=== PATIENT | male | born 1980 | race Caucasian/White ===

== ENCOUNTER 2020-01-29 14:15 | Emergency (ER) | payer SELFPAY ==
--- NOTE | ~2020-01-29 | XR_ITS ---
XR lumbar spine 2-3V 01/29/2020 15:10 Indication: Low back pain Procedure: 3 views lumbar spine Comparison: 01/26/2013 Findings: Vertebral body and disc heights are preserved. No fracture or traumatic malalignment. Pedic les intact. Sacral foramen are symmetric. There are mild facet degenerative changes at L5-S1. Impression: 1: Mild lumbar spondylosis. Reviewed, dictated and finalized at location B. Impression: 1: Mild lumbar spondylosis.
[2020-01-29 14:32] VITALS: BP 142/79; PULSE 102; RESP 18; TEMP 36.6; O2SAT 98
--- NOTE | 2020-01-29 14:44 | ED.BACK ---
HPI - Back Pain/Injury General Chief Complaint: Back Pain/Injury Stated Complaint: Back pain Time Seen by Provider: 01/29/20 14:45 Source: patient Mode of arrival: ambulatory Limitations: no limitations History of Present Illness HPI Narrative: Previously well 39-year-old man comes in today complaining of low back pain which has been present for last week. Patient states that he was lifting rebar work when he felt a pop in his lower back and he was unable to a left after that without significant pain. Patient states the pain now radiates to his right buttock and his right lateral thigh. He denies any weakness, numbness, tingling, perineal numbness or incontinence. He said he has had back aches from work before but he states this never been this bad. MD elicited complaint: back pain and back injury Pertinent past history: prior back pain Onset (ago): week(s) (1) Timing: constant Severity: severe Similar Symptoms Previously: Yes Quality: sharp and aching Location: lumbar spine Radiation: buttocks (R) and right upper leg Exacerbating factors: movement and lifting Relieving factors: other (rest) Context: while lifting Treatments prior to arrival: NSAIDS Work related injury: Yes Related Data Allergies Allergy/AdvReac Type Severity Reaction Status Date / Time No Known Allergies Allergy Verified 01/29/20 14:39 Review of Systems Constitutional: Constitutional: Denies chills, Denies fever(s) and Denies weakness Eyes: Eyes: Denies change in vision and Denies photophobia ENT: Denies dysphagia, Denies nasal congestion and Denies sore throat Cardiovascular: Cardiovascular: Denies chest pain and Denies radiating jaw, neck or arm pain Respiratory: Respiratory: Denies cough, Denies dyspnea and Denies wheezing Gastrointestinal: Gastrointestinal: Denies abdominal pain, Denies nausea and Denies vomiting Genitourinary: Genitourinary: Denies dysuria and Denies urinary incontinence Musculoskeletal: Musculoskeletal: Reports as per HPI, Reports back pain, Denies arthralgias and Denies joint swelling Integumentary/Breasts: Skin/Breast: Denies pruritus, Denies erythema and Denies rash Neurologic: Denies vertigo, Denies dizziness and Denies syncope Hematologic/Lymphatic: Hematologic/Lymphatic: Denies easy bleeding and Denies easy bruising Allergic/Immunologic: Allergic/Immunologic: Denies lip swelling and Denies wheezing PMFSH Surgical History Surgical History History of ankle surgery right Social History Social History Smoking status: Current some day smoker Alcohol intake: never Substance use: never Living arrangements: with family Exam Const: Other: Moderate acute distress HENMT: Mouth: Yes moist mucous membranes Throat: posterior oropharynx normal Eyes: Conjunctivae: conjunctivae normal Pupils: Equal, round and reactive pupils present EOM: EOMs intact bilaterally Resp: Effort & Inspection: normal respiratory effort, not labored and no retractions Auscultation: clear to auscultation bilaterally, no crackles, no rales and no rhonchi Cardio: Rate: regular rate Rhythm: regular rhythm Heart sounds: no murmurs GI: Inspection: non-distended Auscultation: normal bowel sounds Skin: General skin exam: normal color, no jaundice and no pallor Rashes: no rashes Neuro: General: patient oriented x3, moves all extremities, no focal motor deficits and CN's II-XI intact bilaterally Speech: normal speech Other: DTR 2+ and symmetric at patellar and calcaneal tendons Extrem: General: normal to inspection and no clubbing, cyanosis or edema Psych: Appearance: grossly normal and well kempt Mental Status: mental status grossly normal Affect: normal affect Attitude: cooperative Thought content: Yes Normal thought content present Course Vital Signs Vital signs: Vital Signs Temperature 36.6 C 01/29/20
[2020-01-29] MEDS: KETOROLAC (*BKC) 60 MG/2 ML VIAL IM (15:11)
== END 2020-01-29 15:30 | disposition home or self-care (01) ==
PROVIDERS: Emergency Provider Emergency Medicine
DX: S39.012A Strain of muscle, fascia and tendon of lower back, initial encounter (principal); X50.9XXA Other and unspecified overexertion or strenuous movements or postures, initial encounter
CPT/HCPCS: 72100; 96372; 99283; J1885

== ENCOUNTER 2020-07-06 11:29 | Emergency (ER) | payer SELFPAY ==
[2020-07-06] VITALS (11 sets, daily range): BP systolic 141–149; BP diastolic 90–97; PULSE 81–109; RESP 15–20; TEMP 36.7; O2SAT 95–100
--- NOTE | ~2020-07-06 | CT_ITS ---
EXAMINATION: CT brain wo con DATE: 07/06/2020 12:48 INDICATION: Confusion. Dizziness. Strabismus. TECHNIQUE: Computed tomography (CT) of the head was performed without intravenous contrast. The mA wa s adjusted according to patient size. Iterative reconstruction technique was employed. The dose-lengt h product was 605.33 mGy-cm. COMPARISON: None FINDINGS: There is no intracranial hemorrhage, acute infarction, or abnormal intracranial mass lesion . The ventricles are normal in size. There is mild mucosal thickening in left maxillary sinus. The ma stoid air cells are normal. The orbits are normal. IMPRESSION: 1. Normal brain. Reviewed, dictated and finalized at location A. NESS SUPPORT COORDINATOR IMPRESSION: 1. Normal brain.
--- NOTE | ~2020-07-06 | CT_ITS ---
EXAMINATION: CT orbit BI w con EXAM DATE: 07/06/2020 14:25 INDICATION: Diplopia Feels Cross Eyed . TECHNIQUE: Spiral CT orbit BI w con was performed following intravenous injection of 75 mL Omnipaque 350. Axial, coronal and sagittal images were reviewed. The dose-length product (DLP) for this exami nation was 544.30 mGy-cm. The exposure was tailored according to patient size (auto mA exposure cont rol), and iterative reconstruction (ASIR) was used as additional dose reduction technique. There is no prior study for comparison. FINDINGS: Globes, orbits, extraocular muscles are symmetric and unremarkable. The retrobulbar fat is clear. Sinuses and mastoid air cells are well aerated. Moderate rightward nasal septal deviation. No suprasellar mass. There are no areas of abnormal enhancement on the post contrast images. No upper ce rvical carotid or vertebral arterial dissection. IMPRESSION: Unremarkable CT orbits exam Reviewed, dictated and finalized at location A. NESS MACHINE MECHANIC IMPRESSION: Unremarkable CT orbits exam
[2020-07-06 12:44] LABS: Basophils Absolute Auto 0.03 K/mm3 (0.00-0.10); Basophils Percent Auto 0.4 % (0.0-1.0); Eosinophils Absolute Auto 0.21 K/mm3 (0.02-0.50); Eosinophils Percent Auto 3.1 % (1.0-6.0); Hematocrit 44.8 % (40.0-54.0); Hemoglobin 14.8 g/dL (14.0-18.0); Immature Granulocyte Absolute 0.01 K/mm3 (0.00-0.00); Immature Granulocyte Percent A 0.1 % (0.0-0.0); Lymphocytes Absolute Auto 1.78 K/mm3 (1.10-4.50); Lymphocytes Percent Auto 26.7 % (18.0-42.0); Mean Corpuscular Hemoglobin 28.8 pg (27.0-31.0); Mean Corpuscular Volume 87.3 fL (78.0-102.0); Mean Platelet Volume 9.9 fl (8.7-11.0); Monocytes Absolute Auto 0.53 K/mm3 (0.10-0.90); Monocytes Percent Auto 7.9 % (2.0-11.0); Neutrophils Absolute Auto 4.1 K/mm3 (1.7-7.2); Neutrophils Percent Auto 61.8 % (50.0-70.0); Platelet Count Result 248 K/mm3 (150-420); Red Blood Count 5.13 M/mm3 (4.70-6.10); White Blood Count 6.7 K/mm3 (4.8-10.8)
[2020-07-06 12:56] LABS: Partial Thromboplastin Time 27.7 SEC (23.90-30.70); Prothrombin Time 10.7 Seconds (9.50-12.10)
[2020-07-06 13:25] LABS: Alanine Aminotransferase 26 U/L (16-63); Albumin Level 3.7 g/dL (3.4-5.0); Alkaline Phosphatase 62 U/L (46-116); Anion Gap 8 mmol/L (8-16); Aspartate Amino Transferase 10 U/L (15-37); Bilirubin,Total 0.5 mg/dL (0.00-1.00); Calcium 9.4 mg/dL (8.5-10.1); Carbon Dioxide 26 mmol/L (21-32); Chloride 104 mmol/L (98-108); Estimated CRCL calculation 78 ml/min; Estimated Glomerular Filt Rate > 60; Folic Acid 19.7 ng/mL (8.6->20); Glucose 111 mg/dL (70-99); Magnesium 2.1 mg/dL (1.8-2.4); Osmolality Calculated 287 mOsm/kg (285-295); Potassium 4.1 mmol/L (3.5-5.1); Sodium 138 mmol/L (136-145); Total Protein 7.1 g/dL (6.4-8.2); Vitamin B12 755 pg/mL (193-986)
[2020-07-06 13:27] LABS: Iron 93 ug/dL (65-175); Percent Iron Saturation 32 % (12-57)
--- NOTE | 2020-07-06 13:27 | ED.GENADULT ---
HPI - General Adult General Chief complaint: Dizziness Stated complaint: 39YO male w/ h/o visual disturbance after he was working on an engine yesterday. Also admits to weakness which has gotten better. Admits to known h.o HTN for which he doesn't take any meds. Related Data Home Medications Medication Instructions Recorded Confirmed No Home Medications 07/06/20 07/06/20 Allergies Allergy/AdvReac Type Severity Reaction Status Date / Time No Known Allergies Allergy Verified 01/29/20 14:39 [facility] Surgical History Surgical History History of ankle surgery right Social History Social History Smoking status: Current some day smoker Alcohol intake: never Substance use: never Course Vital Signs Vital signs: Vital Signs Temperature 98.1 F 07/06/20 11:50 Pulse Rate 96 07/06/20 11:50 Respiratory Rate 16 07/06/20 11:50 Blood Pressure 141/90 H 07/06/20 11:50 Pulse Oximetry 98 07/06/20 11:50 Temperature 98.1 F 07/06/20 11:50 Pulse Rate 83 07/06/20 13:15 Respiratory Rate 15 07/06/20 13:15 Blood Pressure 149/97 H 07/06/20 12:31 Pulse Oximetry 96 07/06/20 13:15 Medical Decision Making Vital Signs Vital Signs: Vital Signs Temperature 98.1 F 07/06/20 11:50 Pulse Rate 96 07/06/20 11:50 Respiratory Rate 16 07/06/20 11:50 Blood Pressure 141/90 H 07/06/20 11:50 Pulse Oximetry 98 07/06/20 11:50 Temperature 98.1 F 07/06/20 11:50 Pulse Rate 83 07/06/20 13:15 Respiratory Rate 15 07/06/20 13:15 Blood Pressure 149/97 H 07/06/20 12:31 Pulse Oximetry 96 07/06/20 13:15 Lab Data Result diagrams: 07/06/20 12:27 07/06/20 12:27 Labs: Lab Results 07/06/20 07/06/20 07/06/20 Range/Units 12:27 12:27 12:27 WBC 6.7 (4.8-10.8) K/mm3 RBC 5.13 (4.70-6.10) M/mm3 Hgb 14.8 (14.0-18.0) g/dL Hct 44.8 (40.0-54.0) % MCV 87.3 (78.0-102.0) fL MCH 28.8 (27.0-31.0) pg MCHC 33.0 (32.0-36.0) g/dL RDW 12.0 (11.6-14.4) % Plt Count 248 (150-420) K/mm3 MPV 9.9 (8.7-11.0) fl Immature Gran % (Auto) 0.1 H (0.0-0.0) % Neut % (Auto) 61.8 (50.0-70.0) % Lymph % (Auto) 26.7 (18.0-42.0) % [place] % (Auto) 7.9 (2.0-11.0) % Eos % (Auto) 3.1 (1.0-6.0) % Baso % (Auto) 0.4 (0.0-1.0) % Lymph # (Auto) 1.78 (1.10-4.50) K/mm3 [place] # (Auto) 0.53 (0.10-0.90) K/mm3 Eos # (Auto) 0.21 (0.02-0.50) K/mm3 Baso # (Auto) 0.03 (0.00-0.10) K/mm3 Abs Immat Gran (auto) 0.01 H (0.00-0.00) K/mm3 Absolute Neuts (auto) 4.1 (1.7-7.2) K/mm3 Absolute Nucleated RBC 0.00 (0.00-0.00) K/mm3 Nucleated RBC % 0.0 (0-0.0) % PT 10.7 (9.50-12.10) Seconds INR 1.0 APTT 27.7 (23.90-30.70) SEC Sodium Pending Potassium Pending Chloride Pending Carbon Dioxide Pending Anion Gap Pending BUN Pending Creatinine Pending Estim Creat Clear Calc Pending Estimated GFR Pending Glucose Pending Calculated Osmolality Pending Calcium Pending Magnesium Pending Iron Pending TIBC Pending % Saturation Pending Total Bilirubin Pending AST Pending ALT Pending Alkaline Phosphatase Pending Total Protein Pending Albumin Pending Vitamin B12 Pending Folate Pending Discharge Plan Discharge Prescriptions: No Action No Home Medications RF: 0
--- NOTE | 2020-07-06 13:30 | ED.DIZZY ---
HPI - Dizziness General Chief Complaint: Dizziness Stated Complaint: 39YO male w/ Diplopia that started last night after he was working on an engine. Admits his eyes were focused on the engine and when he looked down this problem started. Admits to known h.o HTN for which he doesn't take any meds because he doesn't have a PCP.. Related Data Allergies Allergy/AdvReac Type Severity Reaction Status Date / Time No Known Allergies Allergy Verified 01/29/20 14:39 Review of Systems Review of Systems: All systems reviewed & are unremarkable except as noted in HPI and below Cardiovascular: Cardiovascular: Reports no additional cardiovascular complaints Respiratory: Respiratory: Reports no additional respiratory complaints Gastrointestinal: Gastrointestinal: Reports no additional gastrointestinal complaints Musculoskeletal: Musculoskeletal: Reports no additional musculoskeletal complaints Integumentary/Breasts: Skin/Breast: Reports system reviewed and no additional complaints, except as docu Neurologic: Reports system reviewed and no additional complaints, except as documented, Denies vertigo, Reports dizziness, Denies syncope and Reports focal weakness (H/O LUE weakness after he worked on engine yesterday) Psychiatric: Psychiatric: Reports no additional psychiatric complaints Endocrine: Endocrine: Reports no additional endocrine complaints Hematologic/Lymphatic: Hematologic/Lymphatic: Reports no additional hematologic/lymphatic complaints Allergic/Immunologic: Allergic/Immunologic: Reports no additional allergic/immunologic complaints [facility] Past Medical History Medical History HTN (hypertension) Surgical History Surgical History History of ankle surgery right Social History Social History Smoking status: Current some day smoker Alcohol intake: never Substance use: never Exam Const: General: healthy appearing, no acute distress and alert Nutritional Appearance: well nourished Orientation/consciousness: patient oriented x3 Limitations: no limitations HENMT: Head: normal to inspection Ears: EAC's normal Face and sinus: normal facial exam Eyes: Conjunctivae: conjunctivae normal Pupils: Equal, round and reactive pupils present EOM: EOMs intact bilaterally Direct Ophthalmoscopy: no photophobia Neck: Neck: normal visual inspection Chest: Chest palpation & inspection: normal inspection of the chest Resp: Effort & Inspection: normal respiratory effort Cardio: Rate: regular rate Rhythm: regular rhythm GI: Inspection: non-distended Auscultation: normal bowel sounds Skin: General skin exam: normal color Rashes: no rashes Neuro: General: patient oriented x3, moves all extremities, no meningeal signs, no focal motor deficits and CN's II-XI intact bilaterally Cranial nerves: Yes Nystagmus not present Speech: normal speech Gait exam (Neuro): Normal gait present Other: Feels dizzy with both eyes open, favors closing his left eye w/ resolution in symptoms. Has 20/20 visual aquity in both eyes Extrem: General: normal to inspection Psych: Mental Status: mental status grossly normal Course Course Emergency Course: D/c Home w/ outpt follow up with neurology. Also start Po HTN medications and encouraged f/u with PMD Vital Signs Vital signs: Vital Signs Temperature 98.1 F 07/06/20 11:50 Pulse Rate 96 07/06/20 11:50 Respiratory Rate 16 07/06/20 11:50 Blood Pressure 141/90 H 07/06/20 11:50 Pulse Oximetry 98 07/06/20 11:50 Temperature 98.1 F 07/06/20 11:50 Pulse Rate 82 07/06/20 13:55 Respiratory Rate 15 07/06/20 13:15 Blood Pressure 149/97 H 07/06/20 12:31 Pulse Oximetry 96 07/06/20 13:15 MDM - Dizziness Differential Diagnosis Differential diagnosis: Likely benign paroxysmal positional vertigo,
[2020-07-06 13:32] LABS: Blood Urea Nitrogen 14 mg/dL (7-18)
[2020-07-06] MEDS: METOPROLOL SUCCINATE EXT REL 25 MG TABCR PO (13:55)
[2020-07-06] MEDS: MECLIZINE HCL 25 MG TABLET PO (13:55)
== END 2020-07-06 15:10 | disposition home or self-care (01) ==
PROVIDERS: Emergency Provider Family Medicine
DX: I10 Essential (primary) hypertension (principal); H53.2 Diplopia
CPT/HCPCS: 36415; 70450; 70481; 80053; 82607; 82746; 83540; 83550; 83735; 85025; 85610; 85730; 99283; 99284; A9270; Q9965; Q9967

== ENCOUNTER 2024-04-26 12:12 | Emergency (ER) | payer OTHER, SELFPAY ==
[2024-04-26 12:21] VITALS: BP 149/109; PULSE 102; RESP 22; TEMP 36.6; O2SAT 97
[2024-04-26] MEDS: TETANUS,DIPHTHERIA,AC PERTUSSIS ADULT 0.5 ML (ADACEL) IM (12:22)
[2024-04-26] MEDS: LIDOCAINE HCL 1% LOCAL INJ 10 ML VIAL INFILTRATE (12:22)
--- NOTE | 2024-04-26 12:36 | ED.WOUNDLAC ---
HPI - Wound/Laceration General Chief Complaint: Wound/Laceration Stated Complaint: LACERATION Time Seen by Provider: 04/26/24 12:19 Source: patient Mode of arrival: ambulatory Limitations: no limitations History of Present Illness HPI narrative: this is a 43-year-old male who presents with a laceration to left wrist area after he was working on citing and had a straight blade that cut the wrist is gaping approximately2.5cm with some no numbness or tingling in his fingers has good range of motion in his fingers and hand. Onset (ago): hour(s) Location: other Extremity Location: Left: wrist ( 2.5cm gaping laceration to the left wrist area) Place: work Patient tetanus UTD: No Context: accidental Associated symptoms: none Related Data Allergies Allergy/AdvReac Type Severity Reaction Status Date / Time No Known Allergies Allergy Verified 04/26/24 12:17 Review of Systems Review of Systems: All systems reviewed & are unremarkable except as noted in HPI and below PMFSH Past Medical History Medical History HTN (hypertension) Surgical History Surgical History History of ankle surgery right Social History Social History Smoking status: Current some day smoker Alcohol intake: never Substance use: never Living arrangements: with family Exam Const: General: healthy appearing, no acute distress and alert Nutritional Appearance: well nourished Orientation/consciousness: patient oriented x3 Resp: Effort & Inspection: normal respiratory effort Auscultation: clear to auscultation bilaterally Cardio: Rate: regular rate Rhythm: regular rhythm GI: GI Palp: Yes Soft to palpation Auscultation: normal bowel sounds Skin: General skin exam: normal color Wounds: wounds noted Neuro: General: patient oriented x3 Cranial nerves: Yes Nystagmus not present Speech: normal speech Extrem: General: normal to inspection, no clubbing, cyanosis or edema and no pedal edema Course Course Emergency Course: 2.5cm gaping laceration to left wrist area, sutures placed patient tolerated procedure well with minimal blood loss updated with his tetanus. Vital Signs Vital signs: Vital Signs Temperature 36.6 C 04/26/24 12:21 Pulse Rate 102 H 04/26/24 12:21 Respiratory Rate 22 H 04/26/24 12:21 Blood Pressure 149/109 H 04/26/24 12:21 Pulse Oximetry 97 04/26/24 12:21 Oxygen Delivery Room Air 04/26/24 12:21 Temperature 36.6 C 04/26/24 12:21 Pulse Rate 102 H 04/26/24 12:21 Respiratory Rate 22 H 04/26/24 12:21 Blood Pressure 149/109 H 04/26/24 12:21 Pulse Oximetry 97 04/26/24 12:21 Oxygen Delivery Room Air 04/26/24 12:21 Procedures Laceration Laceration 1: Date: 04/26/24 Time: 12:40 Site: upper extremity Side (If applicable): left Size (cm): 2.5 Description: linear Depth: simple, single layer Local Anesthetic: lidocaine 1% Amount of anesthesia used (mL): 7 Pre-repair: wound explored and irrigated ====== Skin Level ====== Skin layer closed with: vicryl Size (cm): 5-0 Number of sutures: 4 Technique: simple, interrupted ====== Subcutaneous Layer ====== ====== Muscle Layer ====== ====== Tendon Layer ====== Critical Care Time Critical Care Time Critical Care Time: No Discharge Plan Discharge Clinical Impression: Laceration Patient Disposition: Home, Self-Care Condition: Stable Instructions: Antibiotic Form, Laceration (ED) Additional Instructions: Advised suture removal in 1 week primary can take Tylenol or Motrin as needed. Prescriptions: No Action metoprolol succinate 25 mg tablet extended release 24 hr 25 mg PO DAILY Qty: 30 0RF Follow-up/Referrals: UNKNOWN,DOCTOR [Prima
--- NOTE | 2024-04-26 12:46 | PC.NURSE ---
Assisted provider as they sutured wound
== END 2024-04-26 12:46 | disposition home or self-care (01) ==
PROVIDERS: Emergency Provider Emergency Medicine
DX: S61.512A Laceration without foreign body of left wrist, initial encounter (principal); I10 Essential (primary) hypertension; F17.200 Nicotine dependence, unspecified, uncomplicated; W26.8XXA Contact with other sharp object(s), not elsewhere classified, initial encounter; Y99.0 Civilian activity done for income or pay; Z23 Encounter for immunization
CPT/HCPCS: 12001; 90471; 90715; 99282; J2003